=== PATIENT | male | born 1990 | race Caucasian/White ===

== ENCOUNTER → 2021-09-13 14:47 | Outpatient (CLI) | payer OTHER, SELFPAY ==
[2021-09-13 16:51] LABS: COVID19 -Nasal RAPID Negative (Negative)
== END ==
PROVIDERS: Visit Provider Surgery
DX: Z20.822 Contact with and (suspected) exposure to COVID-19 (principal); Z01.812 Encounter for preprocedural laboratory examination
CPT/HCPCS: 87635; C9803

== ENCOUNTER 2021-09-16 11:50 | Day surgery (SDC) | payer OTHER, SELFPAY ==
[2021-09-16 12:24] VITALS: BP 120/75; PULSE 75; RESP 16; TEMP 36.1; O2SAT 98; BMI 30.1
--- NOTE | 2021-09-16 12:50 | PM.HP.1 ---
History of Present Illness History of Present Illness Date Patient Seen: 09/16/21 Time Patient Seen: 12:50 Chief complaint: SDC Narrative: I reviewed my office note from July 30. No significant changes. No bleeding since then. Patient History Family & Social History Social History: household members friend(s) Tobacco & Substance use: Smoking Status Never smoker alcohol intake never Substance Use Type does not use Meds Home Medications and Allergies Home Medications Medication Instructions Recorded Confirmed Type No Known Home Medications 09/16/21 09/16/21 History Allergies Allergy/AdvReac Type Severity Reaction Status Date / Time No Known Drug Allergies Allergy Verified 09/16/21 12:23 Review of Systems Review of Systems ROS: Yes All systems reviewed with the patient and are negative except as otherwise documented Exam Vital Signs (past 8 hours): - 09/16/21 12:24 Temperature 97 F L Pulse Rate 75 Respiratory Rate 16 Blood Pressure 120/75 Pulse Oximetry 98 Oxygen Delivery Method Room Air Oxygen Delivery Method Room Air Const General: cooperative HENMT Head: normal to inspection Eyes General: appearance normal, both eyes and all related structures Neck Neck: normal visual inspection Chest Chest: normal inspection of the chest Resp Effort & Inspection: normal respiratory effort Cardio Rate: regular rate GI Inspection: normal to inspection Skin General: no rashes or lesions noted Neuro General: patient alert and patient awake Extrem General: normal to inspection and no pedal edema Psych Appearance: grossly normal Assessment & Plan Assessment & Plan narrative: 31-year-old male with intermittent rectal bleeding. Colonoscopy is pursued today. Time Spent With Patient Critical Care time: I spent a total of [] minutes of critical care time on this patient's care today; this time is exclusive of procedural time.
--- NOTE | 2021-09-16 12:52 | PM.PREOP ---
Pre-operative Note COVID-19 COVID-19 status: Negative Result date/Date tested (Pos, Neg/Pending): 09/13/21 Criteria for continued procedure: Possibility delay results in more complex future surgery or treatment Interval Note History & Physical reviewed/Exam performed by Physician: Yes Changes to H&P: No ASA Class (for procedural sedation): I
--- NOTE | 2021-09-16 13:59 | P.OP.COLON_ITS ---
Operative Date/Time/Diagnoses Date of procedure: 09/16/21 Time of procedure: 13:59 Pre-op diagnosis: Rectal bleeding Post-op diagnosis: same Procedure & Clinicians Study performed: Colonoscopy Same procedure as scheduled: Yes Indications: Rectal bleeding Surgeon: Jordon Thomas Procedure Notes SCOAP/Timeout: Done Procedure in detail: After the risks and benefits were explained, written and verbal informed consent was obtained. The patient was brought into the procedure room and placed into the left lateral decubitus position. Please see nurse director global intelligence notes for sedation details. Digital rectal examination was accomplished. The scope was introduced into the patient and advanced under direct visualization to the cecum as identified by the appendiceal orifice and ileocecal valve. The scope was slowly withdrawn to carefully examine the mucosa for any defects or lesions. Comprehensive imaging was accomplished throughout the rectum including the dentate line. The colon was decompressed, the scope was then removed from the patient who tolerated the procedure well. Adult colonoscope Bowel prep adequate Scope withdrawal time: 8 minutes Sedation minutes: 16 Specimen(s): none sent Complications: none Impression: Patient had no evidence of proctitis no evidence of colitis no significant polyps or mass lesions throughout. The terminal ileum was interrogated and appeared visually normal. I did not appreciate any significant excessive hemorrhoidal cushions. Patient did have what appeared to be a pilonidal sinus in the cleft approximately 2 in away from the anal opening. There was no bleeding at this time no discharge noted at this time. Endoscopic diagnosis 1. Visually normal colonoscopy 2. Probable pilonidal sinus Post-procedure Plan for aftercare: 1. Repeat colonoscopy for colon cancer screening should be considered once again at age 44. 2. Follow up in general surgery clinic for discussion of the pilonidal sinus. Disposition: PACU
[2021-09-16 14:02] VITALS: BP 114/72; PULSE 68; RESP 16; TEMP 36; O2SAT 98
[2021-09-16 14:07] VITALS: BP 130/84; PULSE 56; RESP 14; O2SAT 99
[2021-09-16 14:12] VITALS: BP 129/89; PULSE 70; RESP 16; O2SAT 100
[2021-09-16 14:30] VITALS: BP 132/88; PULSE 70; RESP 16; O2SAT 99
--- NOTE | 2021-09-16 14:31 | SUR.PHASEII ---
Discharge instructions reviewed with patient and time allowed for questions. Pt denies any distress and ready to discharge home. IV DC'd intact.
== END 2021-09-16 14:38 | disposition home or self-care (01) ==
PROVIDERS: Referring Provider Internal Medicine Gastroenterology; Visit Provider Internal Medicine Gastroenterology
PROC: 0DJD8ZZ Inspection of Lower Intestinal Tract, Via Natural or Artificial Opening Endoscopic (ICD-10-PCS; CPT 45378; principal; 2021-09-16 13:00)
DX: K62.5 Hemorrhage of anus and rectum (principal)
CPT/HCPCS: 45378; J2704